=== PATIENT | male | born 1955 | race Caucasian/White ===

== ENCOUNTER → 2020-10-18 | Outpatient (CLI) | payer MEDICARE ==
--- NOTE | 2020-10-18 13:17 | REPPI ---
INDICATION: ELEVATED PSA. COMPARISON: None. TECHNIQUE: Transrectal prostate sonography with a L ultrasound guidance for biopsy. FINDINGS: Trans rectal prostate sonography demonstrates unremarkable seminal vesicles. Prostate gland is heterogeneously enlarged with calcifications and cystic changes noted. Glandular dimensions are measured at 2.9 x 2.7 x 4.6 cm with a calculated glandular volume of 19.1 ml. Transrectal sonographic guidance is provided to Dr. Langley who performed trans rectal ultrasound guided needle biopsy procedure. IMPRESSION: Transrectal ultrasound with sonographic guidance for biopsy. <Electronically signed by Deepak Carroll > 10/18/20 [id number]
== END ==
LOC: M SMT PRO 09:41
PROVIDERS: ATTEND Urology
DX: R97.20 Elevated prostate specific antigen [PSA] (principal); N40.2 Nodular prostate without lower urinary tract symptoms
CPT/HCPCS: 55700; 76872; 76942; G0416

== ENCOUNTER → 2025-05-04 | Outpatient (REF) | payer MEDICARE | LOC: M SMT 13:09 | PROVIDERS: ATTEND Urology | DX: R97.20 Elevated prostate specific antigen [PSA] (principal); C61 Malignant neoplasm of prostate ==

== ENCOUNTER 2025-07-28 10:28 | Day surgery (SDC) | payer MEDICARE ==
[~2025-07-28] VITALS: Ht 157.5 cm; Wt 58.9 kg
[2025-07-28] MEDS: INSULIN LISPRO (NovoLOG) PER UNIT SC SCH ×2 (07:30→21:00)
[~2025-07-28 10:28] MED LIST: ADVA1AER9 INH; ATOR80TA59 PO; B-12100020 PO; CYCL5TAB4 PO; ECOT81TA5 PO; ESSETAB4 PO; HYDR12.510 PO; INCR1INH INH; JARD1TAB PO; LEVO75TA4 PO; LIDOCAINE 2% 100 MG/5 ML SDV (FOR ANES.) As Ordered ONE; LISI30TA4 PO; METO1TAB32 PO; MIDAZOLAM INJ 2 MG/2 ML VIAL As Ordered ONE; ONDANSETRON 4MG/2ML VIAL As Ordered ONE; ROCURONIUM BROMIDE 50MG/5ML VIAL As Ordered ONE; dexAMETHasone 4 MG/ML 1 ML VIAL As Ordered ONE; dexmedeTOMIDine (4 MCG/ML) 200 MCG/50 ML BTL As Ordered ONE
[2025-07-28] MEDS ORDERED: LR 1,000 ML IV SCH (11:55)
[2025-07-28] MEDS ORDERED: NS (Normal Saline) 0.9% 1,000 ML IV SCH (13:50)
[2025-07-28] MEDS ORDERED: DEXTROSE 50% 50 ML SYRINGE IV PRN (13:50)
[2025-07-28] MEDS ORDERED: GLUCAGON INJ 1 MG VIAL SC PRN (13:50)
[2025-07-28] MEDS ORDERED: ACETAMINOPHEN 325 MG TAB PO PRN (13:50)
[2025-07-28] MEDS ORDERED: GLUCOSE 4 GM CHEW PO PRN (13:50)
[2025-07-28] MEDS ORDERED: ONDANSETRON 4MG/2ML VIAL IV PRN ×2 (13:50→18:20)
[2025-07-28] MEDS: HEPARIN SOD 5000 UNITS/ML 1 ML VIAL/SYRINGE SQ ONE (14:00)
[2025-07-28] MEDS ORDERED: PHENYLephrine 500MCG 5ML (100MCG/ML) SYRINGE As Ordered ONE (14:18)
[2025-07-28] MEDS ORDERED: GLYCOPYRROLATE INJ 0.2 MG/ML 2 ML VIAL As Ordered ONE (14:21)
[2025-07-28] MEDS: ceFAZolin SOD 2 GM IV ONCE IV ONE (14:30)
[2025-07-28] MEDS ORDERED: LACRILUBE (AKWA TEARS) OPHTH OINT 3.5 GM As Ordered ONE (14:40)
[2025-07-28] MEDS ORDERED: ACETAMINOPHEN 1000MG/100ML IV BAG As Ordered ONE (15:09)
[2025-07-28] MEDS ORDERED: SUGAMMADEX SODIUM 200 MG/2 ML VIAL As Ordered ONE (15:09)
[2025-07-28] MEDS ORDERED: HYDROmorphone HCL 2 MG/ML 1 ML VIAL As Ordered ONE (15:09)
[2025-07-28] MEDS: LIDOCAINE 1% SDV 30 ML VIAL As Ordered ONE (18:00)
[2025-07-28] MEDS ORDERED: HYDROMORPHONE HCL 0.5 MG/0.5 ML SYRINGE IV PRN (18:20)
[2025-07-28 19:00] VITALS: BP 137/73; TEMP 97; O2SAT 95
[2025-07-28 19:09] LABS: PLATELET COUNT, AUTOMATED 178 10^3/uL (150-450)
[2025-07-28 19:37] LABS: CALCIUM LEVEL 8.1 MG/DL (8.3-10.6); CARBON DIOXIDE LEVEL 24.0 MMOL/L (20-31); CHLORIDE LEVEL 108.0 MMOL/L (98-107); CREATININE FOR GFR 1.61 MG/DL (0.70-1.30); GLOMERULAR FILTRATION RATE 45.2 (>42); POTASSIUM SERUM 4.8 MMOL/L (3.5-5.1); SODIUM LEVEL 141.0 MMOL/L (136-145)
[2025-07-28 19:54] VITALS: BP 119/70; TEMP 96.8; O2SAT 95
[2025-07-28 19:59] VITALS: BP 121/74; TEMP 97; O2SAT 96
[2025-07-28] MEDS: LR 1,000 ML IV SCH (21:15)
[2025-07-28 21:19] VITALS: BP 145/87; TEMP 97; O2SAT 99
[2025-07-28] MEDS ORDERED: HOME MED LIST COMPLETE! XX SCH (21:25)
[2025-07-28] MEDS: DOCUSATE SODIUM 100 MG CAPSULE PO SCH (21:32)
[2025-07-28] MEDS: PERCOCET 5MG/325MG TAB PO PRN (21:33)
[2025-07-28] MEDS: ceFAZolin SOD 1 GM in DEXTROSE 5% (D5W) ADV/MINI-BAG 50 ML IV SCH (21:38)
[2025-07-28 22:51] VITALS: BP 113/70; TEMP 97.2; O2SAT 96
[2025-07-28] MEDS: METOPROLOL SUCC. 25 MG *XL* TAB PO SCH (23:23)
[2025-07-28] MEDS: ATORVASTATIN 20 MG TAB PO SCH (23:25)
[2025-07-28] MEDS: HEPARIN SOD 5000 UNITS/ML 1 ML VIAL/SYRINGE SC SCH (23:26)
[2025-07-29 00:12] VITALS: BP 111/68; TEMP 97.3; O2SAT 96
[2025-07-29 05:11] VITALS: BP 100/58; TEMP 97.5; O2SAT 95
[2025-07-29] MEDS: LEVOTHYROXINE 75 MCG TABLET (0.075 MG) PO SCH (05:51)
[2025-07-29] MEDS: ADVAIR HFA 115/21 MCG INHALER INH SCH (07:31)
[2025-07-29 08:08] LABS: PLATELET COUNT, AUTOMATED 192 10^3/uL (150-450)
[2025-07-29 08:31] LABS: CALCIUM LEVEL 7.8 MG/DL (8.3-10.6); CARBON DIOXIDE LEVEL 25.0 MMOL/L (20-31); CHLORIDE LEVEL 103.0 MMOL/L (98-107); CREATININE FOR GFR 1.68 MG/DL (0.70-1.30); GLOMERULAR FILTRATION RATE 42.9 (>42); POTASSIUM SERUM 4.6 MMOL/L (3.5-5.1); SODIUM LEVEL 138.0 MMOL/L (136-145)
[2025-07-29 08:36] VITALS: BP 100/58
[2025-07-29] MEDS ORDERED: COLA100C5 PO (09:24)
[2025-07-29] MEDS ORDERED: CIPR-249 PO (09:24)
[2025-07-29] MEDS ORDERED: PERCOCET PO (09:24)
[2025-07-29 10:00] VITALS: BP 115/57; TEMP 98.6; O2SAT 97
[2025-07-29 12:18] VITALS: O2SAT 94
[2025-07-29] MEDS: PERCOCET 5MG/325MG TAB PO PRN (13:38)
[2025-07-29 14:00] VITALS: BP 104/63; TEMP 98.4; O2SAT 94
== END 2025-07-29 15:00 | disposition home or self-care (01) ==
LOC: M SDC 10:28 → M MS5PR 19:42 → M SDC 07-29 15:00
PROVIDERS: ATTEND Urology
DX: C61 Malignant neoplasm of prostate (principal); E11.9 Type 2 diabetes mellitus without complications; I10 Essential (primary) hypertension; J44.9 Chronic obstructive pulmonary disease, unspecified; E78.00 Pure hypercholesterolemia, unspecified; Z79.899 Other long term (current) drug therapy; Z79.82 Long term (current) use of aspirin; Z79.890 Hormone replacement therapy; Z79.51 Long term (current) use of inhaled steroids; Z87.891 Personal history of nicotine dependence
CPT/HCPCS: 36415; 38571; 55866; 80048; 85027; 86850; 86900; 86901; 88305; 88309; 94664; J0131; J0665; J0688; J0690; J1100; J1171; J1596; J2250; J2371; J2405; J3010